=== PATIENT | female | born 1965 | race Caucasian/White ===

== ENCOUNTER 2018-12-29 18:06 | Emergency (ER) | payer MEDICARE ==
[~2018-12-29] VITALS: Ht 177.8 cm; Wt 100.0 kg
[2018-12-29] MEDS ORDERED: HYDROcodone/acetaminophen 10/325mg tab PO ONE (20:10)
[2018-12-29] MEDS ORDERED: HYDR-3965 PO (21:10)
[2018-12-29 21:13] VITALS: BP 130/74
== END 2018-12-29 21:14 | disposition home or self-care (01) ==
LOC: ER 18:07
DX: S50.311A Abrasion of right elbow, initial encounter (principal); M25.511 Pain in right shoulder; M25.531 Pain in right wrist; Z88.0 Allergy status to penicillin; W18.49XA Other slipping, tripping and stumbling without falling, initial encounter; Y93.89 Activity, other specified; Y92.89 Other specified places as the place of occurrence of the external cause; Y99.9 Unspecified external cause status
CPT/HCPCS: 73030; 73090; 73110; 99284

== ENCOUNTER → 2019-01-12 | Outpatient (CLI) | payer MEDICARE | END | disposition home or self-care (01) | LOC: ORTHO 11:29 | PROVIDERS: ATTEND Orthopaedic Surgery | DX: M79.621 Pain in right upper arm (principal) | CPT/HCPCS: G0463 ==